=== PATIENT | male | born 1970 | race Caucasian/White ===

== ENCOUNTER 2021-11-01 08:50 | Day surgery (SDC) | payer OTHER ==
[2021-10-28 12:25] LABS: BASOPHILS # (AUTO) 0.1 X10'3 (0-0.2); BASOPHILS % (AUTO) 1.1 % (0-1); EOSINOPHILS # (AUTO) 0.2 X10'3 (0-0.9); LYMPHOCYTES # (AUTO) 1.5 X10'3 (1.1-4.8); LYMPHOCYTES % (AUTO) 23.5 % (21-51); MEAN CORPUSCULAR HEMOGLOBIN 30.6 PG (27.0-31.0); MEAN CORPUSCULAR HGB CONC 34.5 g/dL (33.0-36.5); MEAN CORPUSCULAR VOLUME 88.8 FL (78-98); MEAN PLATELET VOLUME 7.7 FL (7.4-10.4); MONOCYTES # (AUTO) 0.6 X10'3 (0-0.9); MONOCYTES % (AUTO) 9.5 % (2-12); NEUTROPHILS # (AUTO) 3.9 X10'3 (1.8-7.7); NEUTROPHILS % (AUTO) 62.9 % (42-75); PRE OP HEMATOCRIT 41.2 % (42.0-52.0); PRE OP HEMOGLOBIN 14.2 g/dL (14.0-17.9); PRE OP PLATELET COUNT 185 X10'3 (140-440); RED BLOOD COUNT 4.64 X10'6 (4.70-6.10); RED CELL DISTRIBUTION WIDTH 13.3 % (11.5-14.5)
[2021-10-28 12:48] LABS: ALBUMIN 4.1 G/DL (3.4-5.0); ALBUMIN/GLOBULIN RATIO 1.1 (1.1-1.5); ALKALINE PHOSPHATASE 94 IU/L (46-116); BLOOD UREA NITROGEN 10 MG/DL (7-18); BUN/CREATININE RATIO 10.3 (5.4-32.0); CALCIUM 8.9 MG/DL (8.5-10.1); CHLORIDE 105 MMOL/L (99-107); CREATININE 0.97 MG/DL (0.60-1.10); PRE OP ANION GAP 9 (8-16); PRE OP AST 59 U/L (10-37); PRE OP BILIRUB, TOTAL 0.5 MG/DL (0.0-1.0); PRE OP GLUCOSE 101 MG/DL (70-104); PRE OP POTASSIUM 4.2 MMOL/L (3.4-5.1); PRE OP SODIUM 141 MMOL/L (135-145); TOTAL CARBON DIOXIDE 26.6 MMOL/L (24-32); TOTAL PROTEIN 7.8 G/DL (6.4-8.2); eGFR 82 ML/MIN
[2021-10-28 12:58] LABS: PRE OP ALT 130 U/L (30-65)
[~2021-11-01] VITALS: Ht 180.3 cm; Wt 89.9 kg
[~2021-11-01 08:50] MED LIST: NO HOME MEDS; ceFAZolin inj. 2,000 MG in dextrose 5%-water 100 ML IV ONE; famotidine 20mg tablet PO ONE; ringers solution, lacted 1,000 ML IV SCH
[2021-11-01 09:00] VITALS: BP 138/96
[2021-11-01] MEDS ORDERED: LIDOcaine 0.5% (5mg/ml) 50ml vial ONE (10:25)
[2021-11-01] MEDS ORDERED: BUPIVAcaine 0.5% inj/PF 30 ML ONE ×2 (10:28→11:32)
[2021-11-01] MEDS ORDERED: midazolam 1 mg/ML 2ml injection ONE ×2 (10:31→11:54)
[2021-11-01] MEDS ORDERED: fentaNYL/PF 50MCG/1 ML 2ML syringe ONE ×2 (10:31→12:01)
[2021-11-01] MEDS ORDERED: propofol inj 20 ML IV ONE (12:15)
[2021-11-01] MEDS ORDERED: labetalol 20mg/4ml (5mg/ml) syringe IV ONE (12:20)
[2021-11-01 12:34] VITALS: BP 155/105
--- NOTE | 2021-11-01 12:34 | NUR ---
Received from OR via BED, accompanied by Anesthesiologist DR DALE and report given by Anesthesiologist. PT AWAKE, DENIES PAIN, RIGHT THUMB/HAND/WRIST W/SPLINT/DRSG,NADIR WRAP COVERING CDI. 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 Addendum: 11/01/21 at 1307 by Ally Rascon RN Amended: Links added.
[2021-11-01 12:40] VITALS: BP 149/102
[2021-11-01 12:50] VITALS: BP 150/97
[2021-11-01] MEDS ORDERED: ondansetron/PF 4mg/2ml inj IV PRN (12:50)
[2021-11-01] MEDS ORDERED: ringers solution, lacted 1,000 ML IV SCH (12:50)
[2021-11-01] MEDS ORDERED: morphine 2 MG/ML inj. syringe IV PRN (12:50)
[2021-11-01] MEDS ORDERED: proCHLORperazine 10 MG/2 ml inj IV PRN (12:50)
[2021-11-01] MEDS ORDERED: morphine 4 MG/ML inj SYRINge IV PRN (12:50)
[2021-11-01] MEDS ORDERED: meperidine/PF 25mg/ml syringe IV PRN ×3 (12:50)
[2021-11-01 13:00] VITALS: BP 152/91
[2021-11-01 13:10] VITALS: BP 148/90
--- NOTE | 2021-11-01 13:34 | NUR ---
PT UP AND ABLE TO AMBULATE SAFELY, NO C/O. D/C INSTRUCTIONS GIVEN AND GONE OVER W/PT WHO VERBALIZED UNDERSTANDING. PT D/CD TO HOME VIA W/C TO PRIVATE VEHICLE W/O INCIDENT. Addendum: 11/01/21 at 1402 by Ally Rascon RN Amended: Links added.
== END 2021-11-01 13:34 | disposition home or self-care (01) ==
LOC: PAS 08:50
PROVIDERS: ATTEND Orthopaedic Surgery Hand Surgery
DX: M19.041 Primary osteoarthritis, right hand (principal); Z79.899 Other long term (current) drug therapy; Z20.822 Contact with and (suspected) exposure to COVID-19; Z98.890 Other specified postprocedural states; Z72.89 Other problems related to lifestyle; Z87.891 Personal history of nicotine dependence; Z83.3 Family history of diabetes mellitus
CPT/HCPCS: 26850; 36415; 80053; 82948; 85025; 87635; 93005; C1713; C9803; J0690; J2250; J2704; J3010; J3490; J7030; J7060; J7120; S0020; Z7506; Z7512; A4215; A4618; A7000